=== PATIENT | female | born 1945 | race Caucasian/White ===

== ENCOUNTER 2021-10-05 12:10 | Emergency (ER) | payer OTHER ==
[2021-10-05 13:02] LABS: BASOPHIL 1.2 % (0-2); EOSINOPHIL 2.2 % (0-7); HCT 43.8 % (37.0-47.0); HGB 14.4 g/dl (12.5-16.0); LYMPHOCYTE 27.8 % (15-48); MCH 29.6 pg (25.0-31.0); MCHC 32.9 g/dL (32.0-36.0); MCV 90.1 fL (78.0-100.0); MPV 11.2 fL (6.0-9.5); NEUTROPHIL 59.5 % (41-80); NRBC 0; PLT 251 K/uL (150-400); RBC 4.86 M/uL (4.20-5.40); RDW 13.1 % (11.5-14.0); WBC 6.5 K/uL (4.0-10.5)
[2021-10-05 13:25] LABS: BUN/CREAT RATIO (CALC) 14.6 RATIO; CREATININE 0.89 mg/dL (0.51-0.95); POTASSIUM 4.1 mmol/L (3.5-5.1)
[2021-10-05 14:50] LABS: BILIRUBIN NEGATIVE (NEGATIVE); BLOOD NEGATIVE Ery/uL (NEGATIVE); CLARITY CLEAR (CLEAR); COLOR YELLOW (YELLOW); GLUCOSE (U) NORMAL (NORMAL); LEUKOCYTES TRACE Leu/uL (NEGATIVE); NITRITE NEGATIVE (NEGATIVE); PROTEIN NEGATIVE (NEGATIVE); SPECIFIC GRAVITY <=1.005 (1.001-1.030); UROBILINOGEN 0.2 mg/dL (0.2-1.0)
[2021-10-05 14:57] LABS: BACTERIA TRACE; URINARY WBC RARE
[2021-10-05] MEDS ORDERED: NORCO 5-325 TA1 EACH PO ×2 (16:32→16:39)
[2021-10-05] MEDS ORDERED: DEBROX15 ML AU (16:32)
== END 2021-10-05 17:18 | disposition home or self-care (01) ==
LOC: FER 12:10
PROVIDERS: Nurse Practitioner Family
DX: S32.592A Other specified fracture of left pubis, initial encounter for closed fracture (principal); H61.23 Impacted cerumen, bilateral; Z88.5 Allergy status to narcotic agent; W19.XXXA Unspecified fall, initial encounter; Y93.89 Activity, other specified; Y92.009 Unspecified place in unspecified non-institutional (private) residence as the place of occurrence of the external cause
CPT/HCPCS: 36415; 70450; 71045; 73502; 80048; 81001; 84484; 85025; 93005; Q0162

== ENCOUNTER 2021-10-12 15:26 | Inpatient (IN) | payer MEDICARE, OTHER ==
[~2021-10-12] VITALS: Ht 166.4 cm; Wt 68.0 kg
[~2021-10-12 15:26] MED LIST: DEBROX15 ML AU; NORCO 5-325 TA1 EACH PO
[2021-10-12 16:44] LABS: ALBUMIN 3.7 g/dL (3.4-5.0); BILIRUBIN - TOTAL 0.5 mg/dL (0.2-1.0); BUN/CREAT RATIO (CALC) 22.6 RATIO; CREATININE 0.84 mg/dL (0.51-0.95); GLOBULIN (CALCULATION) 4.6 g/dL; POTASSIUM 4.1 mmol/L (3.5-5.1); TOTAL PROTEIN 8.3 g/dL (6.4-8.2)
[2021-10-12 16:52] LABS: BASOPHIL 1.1 % (0-2); EOSINOPHIL 1.6 % (0-7); HCT 45.5 % (37.0-47.0); HGB 14.9 g/dl (12.5-16.0); MCH 29.7 pg (25.0-31.0); MCHC 32.7 g/dL (32.0-36.0); MCV 90.6 fL (78.0-100.0); MONOCYTE 10.6 % (0-12); NEUTROPHIL 67.5 % (41-80); NRBC 0; PLT 261 K/uL (150-400); RBC 5.02 M/uL (4.20-5.40); RDW 12.7 % (11.5-14.0); WBC 8.1 K/uL (4.0-10.5)
[2021-10-12 16:56] LABS: INR 1.07 (0.9-1.2); PROTHROMBIN TIME 13.3 SECONDS (11.8-13.4); PTT 25.2 SECONDS (24.4-34.7)
[2021-10-12] MEDS ORDERED: ROPINIROLE HC0.25 MG PO (23:48)
[2021-10-12] MEDS ORDERED: LISINOPRIL10 MG PO (23:49)
[2021-10-12] MEDS ORDERED: FLUOXETINE HCL20 MG PO (23:51)
[2021-10-12] MEDS ORDERED: LOPRESSOR25 MG PO (23:51)
[2021-10-12] MEDS ORDERED: OMEPRAZOLE 20MG20 MG PO (23:52)
[2021-10-13 06:55] LABS: BASOPHIL 1.3 % (0-2); EOSINOPHIL 3.3 % (0-7); HGB 13.1 g/dl (12.5-16.0); MCH 29.8 pg (25.0-31.0); MCHC 32.8 g/dL (32.0-36.0); MCV 90.9 fL (78.0-100.0); MPV 11.8 fL (6.0-9.5); NEUTROPHIL 55.1 % (41-80); NRBC 0; PLT 204 K/uL (150-400); RDW 12.7 % (11.5-14.0); WBC 6.9 K/uL (4.0-10.5)
[2021-10-13 07:16] LABS: CREATININE 1.2 mg/dL (0.51-0.95); POTASSIUM 3.5 mmol/L (3.5-5.1)
--- NOTE | 2021-10-13 14:34 | NUR ---
10/13/21 Ms. caballero lives at home with her spouse. She reports to have been unable to walk without assistance since Mother's Day. She is using a wc for mobility with assist. - Ms. Caballero is in agreement with acute bernice. A referal was made to [facility] per patient choice.
[2021-10-14 07:21] LABS: BASOPHIL 1.5 % (0-2); EOSINOPHIL 5.5 % (0-7); HCT 37.4 % (37.0-47.0); MCH 29.8 pg (25.0-31.0); MCHC 32.1 g/dL (32.0-36.0); MCV 92.8 fL (78.0-100.0); MONOCYTE 10.9 % (0-12); MPV 11.9 fL (6.0-9.5); NEUTROPHIL 49.8 % (41-80); NRBC 0; PLT 226 K/uL (150-400); RBC 4.03 M/uL (4.20-5.40); RDW 12.9 % (11.5-14.0)
[2021-10-14 07:37] LABS: BUN/CREAT RATIO (CALC) 23.5 RATIO; CREATININE 0.98 mg/dL (0.51-0.95); MAGNESIUM 1.7 mg/dL (1.8-2.4); POTASSIUM 3.8 mmol/L (3.5-5.1)
--- NOTE | 2021-10-14 09:39 | NUR ---
10/14/21 [facility] has accepted patient for admission today. - Mr. Caballero has agreed to transport. Please call report to: [phone] and fax DS to: [phone]. - Report given to MD ROYA Jimenez.
[2021-10-14] MEDS ORDERED: PLAVIX75 MG PO (11:10)
[2021-10-14] MEDS ORDERED: LIPITOR40 MG PO (11:10)
[2021-10-14] MEDS ORDERED: BACLOFEN 10MG T10 MG PO (11:10)
[2021-10-14] MEDS ORDERED: OXY-IR 5MG5 MG PO (11:51)
== END 2021-10-14 13:10 | DRG 65 ==
LOC: FER 15:26 → FMS 18:03
PROVIDERS: Emergency Medicine; Internal Medicine; Nurse Practitioner Acute Care; ADMIT Internal Medicine
DX: I63.81 Other cerebral infarction due to occlusion or stenosis of small artery (principal); S32.592A Other specified fracture of left pubis, initial encounter for closed fracture; G81.94 Hemiplegia, unspecified affecting left nondominant side; N17.9 Acute kidney failure, unspecified; R29.708 NIHSS score 8; Z20.822 Contact with and (suspected) exposure to COVID-19; K21.9 Gastro-esophageal reflux disease without esophagitis; I63.521 Cerebral infarction due to unspecified occlusion or stenosis of right anterior cerebral artery; W19.XXXA Unspecified fall, initial encounter; I45.10 Unspecified right bundle-branch block; R00.0 Tachycardia, unspecified; I44.4 Left anterior fascicular block; I10 Essential (primary) hypertension; R94.31 Abnormal electrocardiogram [ECG] [EKG]; F41.9 Anxiety disorder, unspecified; G47.00 Insomnia, unspecified; Z90.49 Acquired absence of other specified parts of digestive tract; Z79.899 Other long term (current) drug therapy; Z88.5 Allergy status to narcotic agent; Z90.710 Acquired absence of both cervix and uterus; Z82.49 Family history of ischemic heart disease and other diseases of the circulatory system; Z80.0 Family history of malignant neoplasm of digestive organs; Z82.3 Family history of stroke
CPT/HCPCS: 36415; 70450; 70551; 71045; 80048; 80053; 80061; 82550; 83735; 84484; 85025; 85610; 85730; 93005; 94010; 97162; 97166; 97530; 97530-GP; 97535; J1650; J7030; U0002